=== PATIENT | female | born 1935 | race Caucasian/White ===

== ENCOUNTER 2018-07-11 02:08 | Inpatient (IN) | payer OTHER ==
[~2018-07-11] VITALS: Ht 149.9 cm; Wt 65.5 kg
[~2018-07-11 02:08] MED LIST: ANTIVERT/2525 MG PO; ASPIR-LOW81 M1 PO; ATI0.5 PO; CARVEDILOL6.25 M1 PO; CLONIDINE HCL0.1 MG PO; IMD60 PO; LOSARTAN POTASS1 TA6 PO; PLA75 PO; PROTONIX40 MG PO; RANITIDINE HCL150 M1 PO; SIMVASTATIN40 M1 PO; XANAX0.5 MG PO
[2018-07-11 02:14] VITALS: Ht 149.9 cm; Wt 65.5 kg
--- NOTE | 2018-07-11 02:35 | NUR ---
PT PRESENTS TO ER TODAY WITH C/O OF CHEST PAIN THAT STARTED AT APPROX 2300 LAST NIGHT. PER PT SHE HAS AN ACHING 10/10 CP IN THE MIDDLE OF HER CHEST THAT RADIATES TO HER UPPER BACK AND NECK. PT ALSO COMPLAINING OF SOB. PTS LUNG SOUNDS ARE CLEAR IN ALL FEILD ON AUSCULTATION. PT IS A/O X4. RESP ARE EQUAL AND UNLABORED. NO ACUTE DISTRESS NOTED. PT PLACED ON FULL EAR SPECIALIST.
[2018-07-11] MEDS ORDERED: CATAPRES0.1 MG PO (02:45)
[2018-07-11] MEDS ORDERED: EPZICOM1 TAB (02:45)
[2018-07-11 03:00] LABS: CALCIUM 8.9 mg/dL (8.5-10.1); CARBON DIOXIDE 23.9 mmol/L (21-32); CHLORIDE SERUM 103 mmol/L (98-107); CREATININE SERUM 1.2 mg/dL (0.6-1.0); GLUCOSE SERUM 115 mg/dL (74-106); POTASSIUM SERUM 3.8 mmol/L (3.5-5.1); SODIUM SERUM 140 mmol/L (136-145)
[2018-07-11 03:03] LABS: BASOPHIL % 0.4 % (0-2); PLATELET COUNT 152 x10^3mcL (130-400); RED CELL DISTRIBUTION WIDTH 13.6 % (11.5-14.5)
[2018-07-11 03:11] LABS: ALBUMIN 3.8 g/dL (3.4-5.0); ALKALINE PHOSPHATASE 116 U/L (46-116); ALT/SGPT 14 U/L (14-59); AST/SGOT 16 U/L (15-37); BILIRUBIN TOTAL 0.5 mg/dL (0.20-1.00); LIPASE 139 IU/L (73-393); TOTAL PROTEIN, SERUM 7.8 g/dL (6.4-8.2)
--- NOTE | 2018-07-11 03:19 | NUR ---
PT RESTING IN BED. PTS VITALS ARE WNL. PT RATES PAIN A 9/10. NO ACUTE DISTRESS NOTED. FAMILY AT BEDSIDE.
--- NOTE | 2018-07-11 04:34 | NUR ---
PT OFF THE FLOOR FOR CT SCAN.
[2018-07-11 04:45] LABS: CHOLESTEROL/HDL RATIO 3.3; MAGNESIUM 1.8 mg/dL (1.8-2.4); PHOSPHOROUS 3.3 mg/dL (2.5-4.9)
[2018-07-11 04:55] LABS: FREE T4 1.09 ng/dL (0.76-1.46); FREE THYROXINE INDEX 2.8 ug/dL (1.4-4.5); T4(THYROXINE) 8.9 ug/dL (4.7-13.3)
[2018-07-11 05:19] LABS: T3 TOTAL 1.15 ng/mL
--- NOTE | 2018-07-11 05:58 | NUR ---
PT MEDICATED IN AN UPRIGHT POSITION WITH NORCO FOR PAIN. PTS VITAL ARE WNL. PAIN A 9/10. NO ACUTE DISTRESS NOTED.
--- NOTE | 2018-07-11 07:07 | NUR ---
REPORT GIVEN TO JERRICA MELENDEZ TO ASSUME CARE OF PT.
--- NOTE | 2018-07-11 08:00 | NUR ---
ADMITTED FR. ER VIA [facility] ACCOMPANIED BY ER NURSE AND DAUGHTER.CHIEF C/O CP THAT STARTED LAST NIGHT. C/O CP AT 09/22 CLAIMS TO BE GOING DOWN PER PT.ON SR ON THE MONITOR.IV NS STARTED AT 80 ML/HR ORDERED.ADMISSION ASSESSMENT AND HX COMPLETED.CALL LIGHT WITHIN REACH.INSTRUCTED TO CALL FOR ANY PAIN/DISCOMFORT.WILL CONTINUE TO MONITOR PT.
--- NOTE | 2018-07-11 08:11 | NUR ---
PT TRANSFERED VIA GURNEY ACCOMPANIED BY NURSE AND EMT. JAILKEEPER ATTACHED. VSS. RESPS E/U. NO S/S OF DISTRESS NOTED. IV SITE PATENT. NO S/S OF INFILTRATION OR INFECTION NOTED.
[2018-07-11 08:42] VITALS: BP 118/45
--- NOTE | 2018-07-11 11:54 | NUR ---
SPOKE WITH OF TROP=0.110.ORDERED STAT EKG AND WILL WAIT FOR UNIVERSAL GRINDER OPERATOR TO SEE PT.
--- NOTE | 2018-07-11 12:05 | NUR ---
ECHO PENDING-PATIENT STATES SHE HAD ECHO ABOUT A WEEK AGO AT [facility]. RN NEEDS TO CONFIRM AND REQUEST RECORDS.
--- NOTE | 2018-07-11 13:24 | NUR ---
START THE HEPARIN DRIP LOADING DOSE 3900 U, AND 800 U/HR. WILL CONTINUE TO MONITOR THE PT
[2018-07-11 13:47] LABS: microscopic required? NO
[2018-07-11 13:55] LABS: urine erythrocyte NEGATIVE (NEGATIVE)
[2018-07-11 14:45] VITALS: BP 129/47
--- NOTE | 2018-07-11 16:19 | NUR ---
GAVE PT TYLENOL 650 MG PO FOR C/O H/A AT 6/10 PAIN SCALE.WILL CONTINUE TO MONITOR PT.
--- NOTE | 2018-07-11 17:19 | NUR ---
WENT TO CHECK PAIN LEVEL.CLAIMS H/A IS AT 2/10 PAIN SCALE.PT CLAIMS TO FEEL A LOT BETTER.
[2018-07-11 18:36] VITALS: BP 111/33
--- NOTE | 2018-07-11 18:37 | NUR ---
NO SIGNIFICANT CHANGE NOTED.WILL ENDORSE TO NEXT SHIFT.
--- NOTE | 2018-07-11 20:00 | NUR ---
PT A/A/O X4. DENIES DIZZINESS AND HEADACHE. BREATH SOUNDS CLEAR. BREATHING EVEN AND UNLABORED ON ROOM AIR. DENIES CHEST PAIN AND PRESSURE THUS FAR. BOWEL SOUNDS ACTIVE. NO C/O N/V AND ABD PAIN. IV INTACT ON THE RAC INFUSING WITH NS AT 80 ML/HR AND HEPARIN DRIP AT 800 UNITS/HR. MADE PT COMFORTABLE. PLACED CALL LIGHT WITH IN REACH. WILL CONTINUE TO MONITOR.
--- NOTE | 2018-07-11 20:20 | NUR ---
PATIENTS PTT 70.4. HEPARIN DRIP REDUCED FROM 800 TO 700 UNITS/HR. NEXT PTT ORSERED AT 07/12/18, 0015. WILL CONTINUE TO MONITOR.
[2018-07-11 21:33] VITALS: BP 124/53
--- NOTE | 2018-07-12 00:59 | NUR ---
PT RESTING WITH EYES CLOSED. NO DISTRESS AND DISCOMFORT NOTED. WILL CONTINUE TO MONITOR.
--- NOTE | 2018-07-12 01:37 | NUR ---
PATIENTS PTT IS 54.2. NO CHANGES TO BE DONE ON THE HEPARIN DRIP. NEXT PTT 07/12/18 0500. WILL CONTINUE TO MONITOR.
[2018-07-12 05:24] VITALS: BP 137/44
--- NOTE | 2018-07-12 06:48 | NUR ---
PT QUIET AND RESTING. NO C/O CHEST PAIN THUS FAR. IV INTACT AND INFUSING ORDERED. MADE PT COMFORTABLE. WILL ENDORSE TO THE AM NURSE ACCORDINGLY.
[2018-07-12 07:01] LABS: BASOPHIL % 0.2 % (0-2); PLATELET COUNT 133 x10^3mcL (130-400)
--- NOTE | 2018-07-12 07:20 | NUR ---
SEEN RESTING IN BED, NO RESP DISTRESS NOTED, BREATHING E/U ON ROOM AIR. ON HEPARIN DRIPS AT 700 UNITS/HR TO [facility] IV SITE, AWATING FOR PTT RESULT. ON TELE# 1 NSR WITH BBB. DENIES CHEST PAIN. GEB BODY WEAKNSS, BSC NOTED, CALL LIGHT PLACED WITHIN EASY REACH, SIDERAILS UP X2.
[2018-07-12 07:44] LABS: CALCIUM 8.7 mg/dL (8.5-10.1); CARBON DIOXIDE 22.8 mmol/L (21-32); CHLORIDE SERUM 105 mmol/L (98-107); CREATININE SERUM 0.8 mg/dL (0.6-1.0); GLUCOSE SERUM 111 mg/dL (74-106); POTASSIUM SERUM 3.9 mmol/L (3.5-5.1); SODIUM SERUM 139 mmol/L (136-145)
--- NOTE | 2018-07-12 08:00 | NUR ---
ASSISTED TO SIT UP ON THE EDGE OF BED TO HAVE BREAKFAST. NO ANY DISTRESS NOTED. HEPARIN DRIP AND NS INFUSING WELL TO [facility] IV SITE.
--- NOTE | 2018-07-12 08:20 | NUR ---
PTT 42.6, REBOLUS 2600 UNITS PER PROTOCAL HEPARIN INCREASED TO 800 UNITS/HR, NEXT PTT DRAW 12:20PM.
--- NOTE | 2018-07-12 09:00 | NUR ---
NORCO 1 TAB PO GIVEN FOR BACK PAIN. WILL CONTINUE TO MONITOR.
[2018-07-12 09:40] VITALS: BP 136/43
--- NOTE | 2018-07-12 09:40 | NUR ---
SEEN BY DOCTOR MICHELLE AND DOCTOR PANIAGUA AT BEDSIDE. PATIENT MADE AWARE PLAN OF CARE.
[2018-07-12 12:39] VITALS: BP 93/39
--- NOTE | 2018-07-12 13:08 | NUR ---
PTT JUST DRAWN, AWAITING FOR RESULT.
--- NOTE | 2018-07-12 14:14 | NUR ---
NOTED PTT PENDING RESULT.
--- NOTE | 2018-07-12 15:13 | NUR ---
PTT LEVEL =90.6, HEPARIN DRIPS HELD FOR ONE HOUR THEN WILL BE REDUCED FROM 800 UNITS/HR TO 600UNITS/HR. NEXT PTT DRAW IS 17:15PM.
[2018-07-12 17:10] VITALS: BP 114/40
--- NOTE | 2018-07-12 18:00 | NUR ---
NO ANY DISTRESS THROUGHOUT SHIFT. NORCO 1 TAB PO GIVEN X1 FOR BACK AND MID CHEST PAIN WITH GOOD RELIEF. HEPARIN DRIPS ONGOING AT 600UNITS/HR PER PROTOCAL. IVF NS AT 80ML/HR CONTINUED. IV SITE TO RTAC INTACT AND PATENT.
[2018-07-12 18:04] VITALS: BP 114/40
--- NOTE | 2018-07-12 18:09 | NUR ---
RC'D CALL FROM DR HANLEY FILTER TANK TENDER HELPER HEAD, PT APPROVED FOR TRANSFER TO [facility] WITH ACCEPTING DR JOSE. PER SOCIAL SERVICE ORDER PT NEEDS HIGHER LEVEL OF CARE, NEEDS CARDIAC CATHERIZATION. PRIMARY RN, PROPERTY OFFICER, BROADCAST DESIGNER AND DR PANIAGUA MADE AWARE OF INFORMATION. AWAITING NEW ORDERS AT THIS TIME.
--- NOTE | 2018-07-12 18:28 | NUR ---
at 1810- called CM and spoke to Aidee Stone and informed her that Dr Rosa (workers' compensation hearings officer) trying to call the department to informed them that patient needs to be transferred to [facility] for heart cath at [facility] with admitting MD Dr Santoyo. Aidee stated that she will reach to Dr Rosa regarding order.Will endorse to incoming rn house supervisor to follow up.
--- NOTE | 2018-07-12 19:58 | NUR ---
RECEIVED PT IN BED, RESTING QUIETLY. A/O X4. DENIES HEADACHE/DIZZINESS. RESP. EVEN AND UNLABORED. ON ROOM AIR, NO ACUTE DISTRESS NOTED.SR ON THE MONITOR, DENIES CHEST PAIN OR ANY DISCOMFORT AT THIS TIME. ON HEPARIN DRIP AT 600UNITS/HR AND IVF, NS AT 80ML/HR, INTACT AND INFUSING WELL, SITE CLEAR. ASSISTED WITH HS CARE. CALL LIGHT WITHIN REACH. WILL CONTINUE TO MONITOR.
[2018-07-12 20:46] VITALS: BP 141/53
--- NOTE | 2018-07-12 21:00 | NUR ---
IV SITE LEAKING, DISCONT. NEW IV SITE RESTARTED ON RT FORE ARM WITH #22G ANGIO. IVF INFUSING WELL. WILL CONTINUE TO MONITOR.
--- NOTE | 2018-07-12 21:34 | NUR ---
PTT RESULT SHOWS 49.4, NO ADJUSTMENT REQUIRED AT THIS TIME. REMAINS ON HEPARIN DRIP AT 600UNITS /HR, PENDING NEXT PTT LEVEL. WILL CONTINUE TO MONITOR.
--- NOTE | 2018-07-13 01:19 | NUR ---
PTT RESULT SHOWS 41.2, HEPARIN 2600UNITS IV BOLUS GIVEN AND HEPARIN DRIP INCREASED TO 7ML/HR (700UNITS/HR) PER PROTOCOL. NEXT PTT LEVEL DUE AT 0500.WILL CONTINUE TO MONITOR.
--- NOTE | 2018-07-13 03:05 | NUR ---
COMPLAINED OF BACK PAIN, 5/10, REQUESTING PAIN MED, MEDICATED WITH NORCO PO ORDERED. WILL CONTINUE TO MONITOR.
--- NOTE | 2018-07-13 03:42 | NUR ---
ASLEEP, EASILY AROUSABLE. RESP. EVEN AND UNLABORED. NO ACUTE DISTRESS NOTED. WILL CONTINUE TO MONITOR.
[2018-07-13 05:36] VITALS: BP 120/50
--- NOTE | 2018-07-13 06:09 | NUR ---
SLEPT WELL. ALERT AND ORIENTED. RESP. EVEN AND UNLABORED. ON ROOM AIR , NO ACUTE DISTRESS NOTED. NO COMPLAINTS NOTED AT THIS TIME. DENIES CP OR PRESSURE. IVF AND HEPARIN DRIP AT 700UNITS/HR , INFUSING , SITE CLEAR. VOIDING FREELY. NO BM NOTED. ALL NEEDS ATTENDED TO. CALL LIGHT WITHIN REACH. WILL CONTINUE TO MONITOR.
[2018-07-13 06:21] LABS: BASOPHIL % 0.3 % (0-2); PLATELET COUNT 133 x10^3mcL (130-400); RED CELL DISTRIBUTION WIDTH 13.7 % (11.5-14.5)
[2018-07-13 06:45] LABS: CALCIUM 8.3 mg/dL (8.5-10.1); CARBON DIOXIDE 22.5 mmol/L (21-32); CHLORIDE SERUM 106 mmol/L (98-107); CREATININE SERUM 0.9 mg/dL (0.6-1.0); GLUCOSE SERUM 106 mg/dL (74-106); POTASSIUM SERUM 3.9 mmol/L (3.5-5.1); SODIUM SERUM 139 mmol/L (136-145)
--- NOTE | 2018-07-13 06:55 | NUR ---
PTT RESULT SHOWS 64.8. NO ADJUSTMENT REQUIRED. NEXT PTT DUE AT 1100 AM. WILL ENDORSE TO INCOMING NURSE.
--- NOTE | 2018-07-13 08:00 | NUR ---
MORPHINE 1MG IVP GIVEN FOR BACK AND LEFT KNEE PAIN, NO ADVERSE REACTION NOTED, WILL CONTINUE TO MONITOR. HEPARIN DRIPS ONGOING AT 700 UNITS/HR PER PROTOCAL.
--- NOTE | 2018-07-13 08:52 | NUR ---
STATED PAIN TO LEFT KNEE IS 6/10 ON PAIN SCALE, NORCO 1 TAB PO GIVEN AT THIS TIME. NOTED FINISHED 50% OF CARDIAC DIET BREAKFAST.
[2018-07-13 09:16] VITALS: BP 131/83
--- NOTE | 2018-07-13 10:54 | NUR ---
STATED BACK PAIN AND CHEST PAIN IS 6/10 ON PAIN SCALE, MORPHINE 1MG IVP GIVEN. WILL CONTINUE TO MONITOR. PTT DRAWN DONE AT BEDSIDE, AWATING FOR RESULT.
--- NOTE | 2018-07-13 12:02 | NUR ---
SPOKE TO DREAD FIGUEROA(KERI) STATED PATIENT WILL BE TRANSFERRED TO [facility] ROOM# 328-A, ACCEPTING DOCTOR SUDARSHAN, DOCTOR PANIAGUA MADE AWARE.
--- NOTE | 2018-07-13 12:05 | NUR ---
PTT LEVEL =47.2, HEPARIN DRIPS CONTINUED AT THE SAME RATE AT 700 UNITS/HR, IV SITE TO RFA PATENT.
[2018-07-13 12:13] VITALS: BP 131/83
[2018-07-13 12:27] VITALS: BP 116/42
--- NOTE | 2018-07-13 12:30 | NUR ---
REPORT GIVEN TO NURSE BRANDON AT [facility] ) , WILL BE PICKED UP BY [facility]. PATIENT WILL BE TRANSFERRED TO ROOM 328-A. NOTED NEW ORDER FOR HEPARIN 5,000 UNITS IVP X1 PRIOR TO TRANSFER. PATIENT AND PATIENT'S SON MADE AWARE.
--- NOTE | 2018-07-13 12:46 | NUR ---
TRANSFER ACKNOWLEDGEMENT FORMED SIGNED BY PATIENT WHO IS AWAKE, ALERT, ORIENTED X4. PATIENT'S SON YANICK AT BEDSIDE MADE AWARE.
--- NOTE | 2018-07-13 14:50 | NUR ---
HEPARIN 5000 UNITS IVP GIVEN PRIOR TO TRANSFER, S/L TO RFA FLUSHED PATENT AND INTACT, NO INFITLRATION NOTED. TELE#1 CLEANED AND RETURNED TO [facility] UP VIA [facility] BY [facility]. ANY DISTRESS NOTED UPON TRANSFER. ACCOMPANIED BY PATIENT'S SON.
--- NOTE | 2018-07-14 09:46 | NUR ---
ECHOCARDIOGRAM NOT DONE-DISCHARGED
== END 2018-07-13 14:50 | disposition short-term general hospital (02) | DRG 280 ==
LOC: ED 02:08 → DU 04:36
PROVIDERS: Emergency Medicine; ADMIT General Practice
DX: I21.4 Non-ST elevation (NSTEMI) myocardial infarction (principal); N17.0 Acute kidney failure with tubular necrosis; I25.10 Atherosclerotic heart disease of native coronary artery without angina pectoris; E86.0 Dehydration; M06.9 Rheumatoid arthritis, unspecified; M32.9 Systemic lupus erythematosus, unspecified; I10 Essential (primary) hypertension; I25.2 Old myocardial infarction; Z95.2 Presence of prosthetic heart valve; Z68.38 Body mass index [BMI] 38.0-38.9, adult; Z95.1 Presence of aortocoronary bypass graft; Z95.5 Presence of coronary angioplasty implant and graft
CPT/HCPCS: 83880; 84439; 85378; J1644; J2270; J7030; Q9967